=== PATIENT | male | born 1965 ===

== ENCOUNTER → 2019-01-29 09:35 | Day surgery (SDC) | payer OTHER ==
--- NOTE | 2019-01-14 17:46 | HP ---
CC: Dr. Roxy Rubio, [facility] * ADMISSION HISTORY AND PHYSICAL: DATE OF ADMISSION: 01/29/19 ATTENDING SURGEON: Dr. Rashid Calvert.* (DICTATED BY ANDRADE ENCARNACION) CHIEF COMPLAINT: Right inguinal hernia. HISTORY OF PRESENT ILLNESS: This is a 53-year-old generally healthy male with a prior left inguinal herniorrhaphy (see below), who experienced some right groin pain in 2009, which improved without any significant interval symptoms. Beginning about 6 months ago, he has noted intermittent discomfort with an associated right groin bulge. This has become more constant in the last 3 months and both symptoms are increased with activity. This has required him to modify his activity level. He has not had any symptoms to suggest incarceration or strangulation. He has not had any changes otherwise in GI or habits. He was seen by Dr. Calvert on 12/10/18, at which time exam confirmed the presence a reducible right inguinal hernia. Dr. Calvert had discussed with him the indications, risks, benefits, and alternatives as well as surgical approach. The patient would like to proceed as recommended with laparoscopic repair of right inguinal hernia with mesh. PAST MEDICAL HISTORY: Hyperlipidemia, obstructive sleep apnea (uses CPAP most nights), erectile dysfunction. PAST SURGICAL HISTORY: Left inguinal herniorrhaphy in 2005. This was done initially as a laparoscopic and then required repair for early recurrence via open approach. His only other surgery is vasectomy. CURRENT MEDICATIONS: 1. Atorvastatin 40 mg once daily. 2. Viagra 50 mg p.r.n. DRUG ALLERGIES: None known. FAMILY HISTORY: Negative for anesthesia problems, bleeding or clotting disorders. SOCIAL HISTORY: The patient works as a researcher. He denies use of tobacco. He drinks occasionally on weekends, but did not quantify. He denies any other recreational drug use. REVIEW OF SYSTEMS: General: No recent constitutional symptoms or other acute illnesses. HEENT: No problems reported. Cardiovascular: No chest pain, palpitations, history of hypertension, or heart murmur. Respiratory: No history of asthma, chronic cough, or shortness of breath. GI: No problems reported. I did not specifically inquire about screening colonoscopy. : No problems reported. Endocrine: No diabetes or thyroid dysfunction. PHYSICAL EXAMINATION GENERAL: Well-nourished, well-developed male, in no acute distress. VITAL SIGNS: Height 70 inches, weight 187 pounds. Blood pressure 118/84, pulse 60, respirations 18. HEENT: Pupils equal, round, reactive. EOMs intact. No conjunctival pallor. Oropharynx: Teeth in good repair. No intraoral lesions. NECK: No lymphadenopathy, thyromegaly, or masses. LUNGS: Clear to auscultation. No wheezes. HEART: Regular rate and rhythm. No murmur noted. ABDOMEN: Soft, nontender to palpation. No palpable masses or organomegaly with the exception of the aforementioned right inguinal hernia, which was confirmed on today's exam. GENITALIA: Testes are otherwise normal. No palpable hernia on the left. RECTAL: Not done. BACK: No spinous process or CVA tenderness. EXTREMITIES: No edema. NEUROLOGICAL: Grossly intact. SKIN: Warm and dry. No suspicious rashes or lesions. IMPRESSION: Right inguinal hernia. PLAN: Laparoscopic repair of right inguinal hernia with mesh. ANDRADE ENCARNACION [id number]/[facility] #: [id number] [facility]
[~2019-01-29 09:35] MED LIST: Buffered Lidocaine 1% SYRIN* 1 ML/SYRINGE INTRADERM ONE; Bupivacaine 0.25% EPI 200,000* 30 ML SDV ONE; Dexamethasone IV* 4 MG/ML 1 ML (4 MG) IV SLOW PU ONE; Dexamethasone IV* 4 MG/ML 5 ML VIAL (20 MG) ONE; DiMENhydriNATE IV* 50 MG/ML VIAL IV PUSH PRN; Famotidine IV* 10 MG/ML 2 ML (20 mg) IV ONE; Famotidine IV* 10 MG/ML 2 ML (20 mg) ONE; HYDROmorphone INJ1* 1 MG/ML SYRINGE IV PRN; Ketorolac INJ* 30 MG/ML 1 ML VIAL ONE; Lactated Ringers 1000 ML Bag* 1,000 ML IV SCH; Lidocaine 2% PF * 5 ML VIAL ONE; Midazolam* 1 MG/ML 5 ML VIAL (5 MG) ONE; Naloxone* 0.4 MG/ML 1 ML VIAL IV PRN; Ondansetron INJ* 2 MG/ML VIAL IV PRN; Ondansetron INJ* 2 MG/ML VIAL ONE; Propofol* 10 MG/ML 20 ML BTL ONE; Rocuronium* 10 MG/ML VIAL ONE; Scopolamine 1.5 mg* PATCH TRANSDERM PRN; Sugammadex * 200 MG/2 ML VIAL IV PUSH ONE; ceFAZolin 2 GM in NS PREMIX(*) 2 GM/100 ML BAG IVPB ONE; fentaNYL* 50 MCG/ML 2 ML VIAL (100 MCG VIAL) IV PRN; fentaNYL* 50 MCG/ML 5 ML VIAL (250 MCG VIAL) ONE; oxyCODONE/Acetamin 5/325 MG* TAB PO PRN
[2019-01-29 17:05] VITALS: BP 131/80
--- NOTE | 2019-01-31 12:08 | OP ---
CC: ANDRADE Huynh * DATE OF OPERATION: 01/29/19 - [facility] DATE OF : 63 SURGEON: Rashid Calvert MD STONEHAND: Katie Xiao NP ANESTHESIOLOGIST: Dr. Birch. ANESTHESIA: General endotracheal. PRE-OP DIAGNOSIS: Right inguinal hernia. POST-OP DIAGNOSIS: Right inguinal hernia. OPERATIVE PROCEDURE: Laparoscopic preperitoneal repair, right inguinal hernia with mesh. ESTIMATED BLOOD LOSS: Less than 30 mL. IV FLUIDS: Crystalloids. SPECIMENS: None. DRAINS: None. COMPLICATIONS: None. COUNTS: The instrument, needle, and sponge counts were correct. DESCRIPTION OF PROCEDURE: The patient was brought to the operating room and placed on the table supine. Sequential compression devices were placed on both lower extremities. General anesthesia was administered. A Suaerz catheter was placed. He was positioned and padded appropriately. He was prepped and draped in the usual sterile fashion. He received appropriate intravenous antibiotics. Time-out was performed. Local anesthetic was infiltrated into the skin and soft tissue prior to making each incision. Curvilinear infraumbilical incision was created through the previous scar. Subcutaneous tissues were divided with a cautery. Rectus sheath was identified and incised transversely to the right of midline. Preperitoneal balloon dissector was placed and it was positioned down to the level of the pubic tubercle and insufflated with direct visualization. It was removed and then replaced with a 12 mm blunt trocar and carbon dioxide was insufflated to a pressure of 15 mmHg. Under direct visualization, two 5-mm trocars were placed in the lower midline. Dissection proceeded from the midline laterally identifying the pubic symphysis, Quan's ligament, inferior epigastric vessels, and preserving these in an anterior direction. Lateral dissection proceeded to the anterior superior iliac spine. Hernia sac was identified, it was dissected free from cord structures. During this maneuver, the sac was torn and attempts were made to close the sac with clips. Bard 3DMax right side large mesh was used for the repair. This was placed into the preperitoneal space and positioned to cover direct and indirect femoral hernia spaces. A single tack of the capture was used to secure the mesh to Quan's. The mesh was positioned laterally, and upon this maneuver, there was noted to be another rent in the peritoneal sac. Inspection revealed that this was too large to deal with from a preperitoneal space, and therefore I repositioned the trocars into the peritoneal cavity, and then utilizing the endoscopic clip inlayer silver, proceeded to close the rent in the peritoneal sac. After assuring good coverage of the mesh, the ports were removed, carbon dioxide was released. The infraumbilical site was closed in 2 layers using 0 Vicryl to close the posterior and anterior sheath of the rectus. Skin incisions were closed with 4- 0 Monocryl in a subcuticular fashion. Steri-Strips were applied. The patient tolerated the procedure well. He was extubated uneventfully and he was transferred to the recovery room in stable condition. [id number]/[facility] #: [id number] [id number]
== END | disposition home or self-care (01) ==
LOC: OR 09:35
PROVIDERS: ATTEND Surgery
DX: K40.90 Unilateral inguinal hernia, without obstruction or gangrene, not specified as recurrent (principal); E78.5 Hyperlipidemia, unspecified; G47.33 Obstructive sleep apnea (adult) (pediatric); N52.9 Male erectile dysfunction, unspecified
CPT/HCPCS: C1781; J0690; J1100; J1885; J2250; J2405; J2704; J3010